=== PATIENT | female | born 1960 | race Caucasian/White ===

== ENCOUNTER 2018-06-14 01:49 | Emergency (ER) | payer OTHER ==
[~2018-06-14] VITALS: Ht 152.4 cm; Wt 104.3 kg
--- NOTE | 2018-06-14 03:09 | PHYS DOC ---
Past History Past Medical History: Diabetes, High Cholesterol, Hypertension, Hypothyroid Past Surgical History: No Surgical History Alcohol Use: Occasionally Drug Use: None Adult General Chief Complaint Chief Complaint: LOWER EXT PAIN HPI HPI 57-year-old female presents with right lower extremity swelling and pain. The patient has been traveling plane recently. She has also been doing a lot of walking, which is unusual for her. She noticed 4 days ago that her right calf was swelling more than left. At that time, she had some ankle discomfort which she assumed was due to the excessive walking that she was doing. The swelling has not gone away and now her pain is more in the posterior calf. She is concern for DVT. She has not had a DVT in the past, but has had a superficial thrombus. No history of blood clotting disorders or PE. She will be traveling on an airplane again later today and wanted to be sure she could take a trip. She denies shortness of breath, chest pain, diaphoresis, fever, or chills. Review of Systems Review of Systems Constitutional: Denies fever or chills [] Eyes: Denies change in visual acuity, redness, or eye pain [] HENT: Denies nasal congestion or sore throat [] Respiratory: Denies cough or shortness of breath [] Cardiovascular: No additional information not addressed in HPI [] GI: Denies abdominal pain, nausea, vomiting, bloody stools or diarrhea [] : Denies dysuria or hematuria [] Musculoskeletal: Right lower leg pain and swelling[] Integument: Denies rash or skin lesions [] Neurologic: Denies headache, focal weakness or sensory changes [] Endocrine: Denies polyuria or polydipsia [] All other systems were reviewed and found to be within normal limits, except as documented in this note. Allergies Allergies Allergies Coded Allergies Type Severity Reaction Last Updated Verified hydromorphone Allergy Intermediate 06/14/18 Yes Physical Exam Physical Exam Constitutional: Well developed, well nourished, no acute distress, non-toxic appearance. [] HENT: Normocephalic, atraumatic, bilateral external ears normal, oropharynx moist, no oral exudates, nose normal. [] Eyes: PERRLA, EOMI, conjunctiva normal, no discharge. [] Neck: Normal range of motion, no tenderness, supple, no stridor. [] Cardiovascular:Heart rate regular rhythm, no murmur [] Lungs & Thorax: Bilateral breath sounds clear to auscultation [] Abdomen: Bowel sounds normal, soft, no tenderness, no masses, no pulsatile masses. [] Skin: Warm, dry, no erythema, no rash. [] Back: No tenderness, no CVA tenderness. [] Extremities: Tenderness of the right lateral malleolus, mild swelling compared to left. Right calf larger in diameter than left. No erythema or warmth.[] Neurologic: Alert and oriented X 3, normal motor function, normal sensory function, no focal deficits noted. [] Psychologic: Affect normal, judgement normal, mood normal. [] Current Patient Data Vital Signs Vital Signs Date Time Temp Pulse Resp B/P (MAP) Pulse Ox O2 Delivery O2 Flow Rate FiO2 06/14/18 01:55 97.6 18 Room Air EKG EKG [] Radiology/Procedures Radiology/Procedures [] Impressions: EXAM: Right lower extremity venous Doppler. HISTORY: Right lower extremity pain/swelling. COMPARISON: None. FINDINGS: Grayscale and Doppler analysis of the right lower extremity deep venous system was performed with graded compression and augmentation. The common femoral, greater saphenous, superficial femoral, popliteal and calf veins were assessed. There is no evidence of deep venous thrombosis. A small popliteal cyst measures 4.2 x 3.5 x 1.1 cm. IMPRESSION: 1. No evidence of deep venous thrombosis. 2. Small popliteal cyst. Electronically signed by: Rachel Montana MD (06/14/2018 3:35 AM) [facility] EXAM: RIGHT ANKLE 3 VIEWS. HISTORY: Right ankle pain and swelling. COMPARISON: None. FINDINGS: Three views of the right ankle are obtained. There is mild soft tissue swelling medially and laterally. No fractures are identified. Alignment is normal. Joint spaces are maintained. There is a small plantar calcaneal spur. IMPRESSION: 1. Soft tissue swelling. No fracture. Electronically signed by: Rachel Montana MD (06/14/2018 3:42 AM) [facility] [place] . Course & Med Decision Making Course & Med Decision Making Pertinent Labs and Imaging studies reviewed. (See chart for details) The ultrasound shows popliteal cyst, but no DVT. The ankle x-ray shows no fracture, just some soft tissue swelling. The patient may have a mild ankle sprain or strain. She is stable for discharge at this time. I will recommend RICE therapy and ibuprofen. The patient is already on Zorvalex (an NSAID) so I recommended she continue that medication and not take ibuprofen. We will wrap the ankle with an SAMMY bandage. [] Dragon Disclaimer Dragon Disclaimer This electronic medical record was generated, in whole or in part, using a voice recognition dictation system. Departure Departure: Referrals: NON,STAFF (PCP) JUDE NUNEZ DO Jun 14, 2018 03:09
[2018-06-14 03:33] LABS: BASO # 0.1 x10^3/uL (0.0-0.2); BASO % 1 % (0-3); EOS # 0.2 x10^3/uL (0.0-0.7); EOS % 3 % (0-3); HEMATOCRIT 36.5 % (36.0-47.0); HEMOGLOBIN 11.9 g/dL (12.0-15.5); LYMPH # 1.6 x10^3/uL (1.0-4.8); LYMPH % 20 % (24-48); MEAN CORPUSCULAR HEMOGLOBIN 28 pg (25-35); MEAN CORPUSCULAR HGB CONC 33 g/dL (31-37); MEAN CORPUSCULAR VOLUME 86 fL (79-100); MONO # 0.8 x10^3/uL (0.0-1.1); MONO % 11 % (0-9); NEUT # 5.2 x10^3uL (1.8-7.7); NEUT % 66 % (31-73); PLATELET COUNT 264 x10^3/uL (140-400); RED BLOOD COUNT 4.26 x10^6/uL (3.50-5.40); WHITE BLOOD COUNT 7.9 x10^3/uL (4.0-11.0)
--- NOTE | 2018-06-14 03:39 | RAD ---
EXAM: Right lower extremity venous Doppler. HISTORY: Right lower extremity pain/swelling. COMPARISON: None. FINDINGS: Grayscale and Doppler analysis of the right lower extremity deep venous system was performed with graded compression and augmentation. The common femoral, greater saphenous, superficial femoral, popliteal and calf veins were assessed. There is no evidence of deep venous thrombosis. A small popliteal cyst measures 4.2 x 3.5 x 1.1 cm. IMPRESSION: 1. No evidence of deep venous thrombosis. 2. Small popliteal cyst. Electronically signed by: Rachel Montana MD (06/14/2018 3:35 AM) [facility]
--- NOTE | 2018-06-14 03:45 | RAD ---
EXAM: RIGHT ANKLE 3 VIEWS. HISTORY: Right ankle pain and swelling. COMPARISON: None. FINDINGS: Three views of the right ankle are obtained. There is mild soft tissue swelling medially and laterally. No fractures are identified. Alignment is normal. Joint spaces are maintained. There is a small plantar calcaneal spur. IMPRESSION: 1. Soft tissue swelling. No fracture. Electronically signed by: Rachel Montana MD (06/14/2018 3:42 AM) [facility]
[2018-06-14 03:46] LABS: ALBUMIN 3.5 g/dL (3.4-5.0); ALBUMIN/GLOBULIN RATIO 0.9 (1.0-1.7); CREATININE 0.9 mg/dL (0.6-1.0); GFR 64.5; TOTAL BILIRUBIN 0.3 mg/dL (0.2-1.0); TOTAL PROTEIN 7.2 g/dL (6.4-8.2)
== END 2018-06-14 04:20 | disposition home or self-care (01) ==
LOC: ER 01:49
DX: M71.21 Synovial cyst of popliteal space [Baker], right knee (principal); E11.9 Type 2 diabetes mellitus without complications; E78.00 Pure hypercholesterolemia, unspecified; I10 Essential (primary) hypertension; E03.9 Hypothyroidism, unspecified; Z88.5 Allergy status to narcotic agent
CPT/HCPCS: 36415; 73610; 80053; 85025; 93971; 99285